=== PATIENT | female | born 1935 | race Caucasian/White ===

== ENCOUNTER 2016-12-10 10:04 | Inpatient (IN) | payer MEDICARE, OTHER ==
[~2016-12-10] VITALS: Ht 170.2 cm; Wt 76.3 kg
[~2016-12-10 10:04] MED LIST: ASPI-650 PO; COLE1TAB2 PO; ENOX40SY4 SQ; ESOM40CA PO; HYDR-3240 PO; OXYC1TAB7 PO; SULF1TAB3 PO; TOLT4CAP12 PO; VERA40TA PO; will bring a list
[2016-12-10] MEDS ORDERED: ADENOSINE 6 MG/2 ML ONE (10:13)
[2016-12-10] MEDS ORDERED: SODIUM CHLORIDE 0.9% 1,000ML IVBOLUS ONE (10:30)
[2016-12-10] MEDS ORDERED: SODIUM CHLORIDE FLUSH 10ML SYR IVF ONE (10:30)
[2016-12-10] MEDS ORDERED: ADENOSINE 6 MG/2 ML IVPush ONE (10:39)
[2016-12-10 10:40] LABS: BLOOD UREA NITROGEN 18 mg/dL (7-18)
[2016-12-10 10:44] LABS: ASPARTATE AMINO TRANSFERASE 47 U/L (15-37); IS PT STATUS REG ER OR PRE ER? YES
[2016-12-10] MEDS ORDERED: MULT-6 PO (10:50)
[2016-12-10 10:52] LABS: DIFF TOTAL CELLS COUNTED 100 CELL DIFF
[2016-12-10 10:53] LABS: VERIFY COUNTS? YES
[2016-12-10 10:54] LABS: ANISOCYTOSIS 1+
[2016-12-10] MEDS ORDERED: DOCUSATE 100 MG CAPSULE PO PRN (12:00)
[2016-12-10] MEDS ORDERED: ACETAMINOPHEN 325 MG TABLET PO PRN (12:00)
[2016-12-10] MEDS: COLESTIPOL 1 GM TABLET PO SCH (12:00)
[2016-12-10] MEDS: VERAPAMIL 80MG TABLET PO SCH ×2 (12:00→20:04)
[2016-12-10] MEDS: TOLTERODINE LA 4MG CAP.ER.24H PO SCH (12:00)
[2016-12-10] MEDS ORDERED: ONDANSETRON 2MG/ML, 2ML IVPush PRN (12:00)
[2016-12-10] MEDS: PANTOPROZOLE 40MG TABLET PO SCH (12:00)
[2016-12-10] MEDS ORDERED: BISACODYL 10 MG SUPP PR PRN (12:00)
[2016-12-10] MEDS: MULTIVITAMIN 1 TABLET PO SCH (12:00)
[2016-12-10] MEDS ORDERED: POLYETHYLENE GLYCOL 17 GM PACKET PO PRN (12:00)
[2016-12-10 14:10] VITALS: BP 142/87
[2016-12-10] MEDS: SODIUM CHLORIDE 0.9% 1,000 ML IV SCH (14:41)
[2016-12-10] MEDS: CEFTRIAXONE PMX 2GM/50ML 50 ML IV SCH (14:44)
[2016-12-10] MEDS: ENOXAPARIN 40 MG/0.4 ML SQ SCH (14:53)
[2016-12-10 19:37] VITALS: BP 120/73
[2016-12-11 01:35] VITALS: BP 106/66
[2016-12-11] MEDS: SODIUM CHLORIDE 0.9% 1,000 ML IV SCH (04:46)
[2016-12-11 06:08] LABS: BLOOD UREA NITROGEN 10 mg/dL (7-18)
[2016-12-11 07:30] VITALS: BP 97/61
[2016-12-11 07:47] LABS: DIFF TOTAL CELLS COUNTED 100 CELL DIFF
[2016-12-11 07:51] LABS: ANISOCYTOSIS 1+; SMUDGE CELLS 1+; VERIFY COUNTS? YES
[2016-12-11] MEDS ORDERED: POTASSIUM CHLORIDE 20 MEQ TAB.ER.PRT PO ONE (08:00)
[2016-12-11] MEDS: COLESTIPOL 1 GM TABLET PO SCH (09:00)
[2016-12-11] MEDS: VERAPAMIL 80MG TABLET PO SCH ×2 (09:18→20:41)
[2016-12-11] MEDS: MULTIVITAMIN 1 TABLET PO SCH (09:18)
[2016-12-11] MEDS: PANTOPROZOLE 40MG TABLET PO SCH (09:18)
[2016-12-11] MEDS: TOLTERODINE LA 4MG CAP.ER.24H PO SCH (09:18)
[2016-12-11] MEDS: ENOXAPARIN 40 MG/0.4 ML SQ SCH (11:49)
[2016-12-11] MEDS: CEFTRIAXONE PMX 2GM/50ML 50 ML IV SCH (13:54)
[2016-12-11 14:06] VITALS: BP 97/58
[2016-12-11 20:53] VITALS: BP 105/65
[2016-12-12 01:55] VITALS: BP 132/84
[2016-12-12 06:37] LABS: DIFF TOTAL CELLS COUNTED 100 CELL DIFF
[2016-12-12 06:40] LABS: VERIFY COUNTS? YES
[2016-12-12 06:42] LABS: SMUDGE CELLS 1+
[2016-12-12] MEDS ORDERED: LACT1CAP35 PO (07:40)
[2016-12-12] MEDS ORDERED: CEFD300C37 PO (07:40)
[2016-12-12 08:01] VITALS: BP 148/82
[2016-12-12] MEDS: COLESTIPOL 1 GM TABLET PO SCH (09:00)
[2016-12-12] MEDS: MULTIVITAMIN 1 TABLET PO SCH (09:18)
[2016-12-12] MEDS: PANTOPROZOLE 40MG TABLET PO SCH (09:18)
[2016-12-12] MEDS: VERAPAMIL 80MG TABLET PO SCH (09:18)
[2016-12-12] MEDS: TOLTERODINE LA 4MG CAP.ER.24H PO SCH (09:18)
[2016-12-12] MEDS: ENOXAPARIN 40 MG/0.4 ML SQ SCH (13:22)
[2016-12-12 15:47] VITALS: BP 116/77
== END 2016-12-12 18:00 | disposition home or self-care (01) | DRG 872 ==
LOC: ED 10:28 → SUATTDRO 11:15 → EDIP 11:36 → 5SO 14:11
PROC: 0T9B70Z Drainage of Bladder with Drainage Device, Via Natural or Artificial Opening (ICD-10-PCS; principal; 2016-12-10)
DX: A41.51 Sepsis due to Escherichia coli [E. coli] (principal); N39.0 Urinary tract infection, site not specified; I47.1 Supraventricular tachycardia; Z96.653 Presence of artificial knee joint, bilateral; B96.89 Other specified bacterial agents as the cause of diseases classified elsewhere; I10 Essential (primary) hypertension; K21.9 Gastro-esophageal reflux disease without esophagitis; N32.81 Overactive bladder; Z66 Do not resuscitate; Z80.1 Family history of malignant neoplasm of trachea, bronchus and lung; Z85.6 Personal history of leukemia; Z90.49 Acquired absence of other specified parts of digestive tract
CPT/HCPCS: 36415; 71010; 80047; 80048; 80053; 81001; 83605; 83735; 84443; 84484; 85025; 87040; 87077; 87086; 87186; 93005; 96361; 96374; J0153; J0696; J1650; J7030

== ENCOUNTER 2018-04-22 10:15 | Inpatient (IN) | payer MEDICARE, OTHER ==
[~2018-04-22] VITALS: Ht 170.2 cm; Wt 82.0 kg
[~2018-04-22 10:15] MED LIST changes: +CEFD300C37 PO; +LACT1CAP35 PO; +MULT-6 PO; +SULF-169 PO; -SULF1TAB3 PO
[2018-04-22] MEDS ORDERED: SODIUM CHLORIDE FLUSH 10ML SYR IVF ONE (10:30)
[2018-04-22] MEDS ORDERED: ASPIRIN 81 MG TABLET CHEW PO ONE (10:30)
[2018-04-22] MEDS ORDERED: ACET-709 PO (10:35)
[2018-04-22] MEDS ORDERED: TOLT4CAP PO (10:35)
[2018-04-22] MEDS ORDERED: ASPIRIN 81 MG TABLET CHEW ONE (11:13)
[2018-04-22 11:20] LABS: MEAN CORPUSCULAR HEMOGLOBIN 29.9 pg (27.0-34.8); MEAN CORPUSCULAR HGB CONC 33.1 g/dL (32.4-35.8); MEAN CORPUSCULAR VOLUME 90.4 fL (80-100); MEAN PLATELET VOLUME 9.2 fL (7.4-10.4); PLATELET COUNT 109 x10^3/uL (130-400); RED CELL DISTRIBUTION WIDTH 15.1 % (9.6-15.2)
[2018-04-22 11:21] LABS: ANION GAP 11 mmol/L (5-15); CALCIUM 8.9 mg/dL (8.5-10.1); CHLORIDE 101 mmol/L (98-107); CREATININE 1.32 mg/dL (0.55-1.02)
[2018-04-22 11:24] LABS: TROPONIN I < 0.015 ng/mL (0.000-0.045)
[2018-04-22 11:44] LABS: MD YES
[2018-04-22 11:52] LABS: BAND#(MANUAL) 0.55 x10^3/uL; BANDS%(MANUAL) 1 % (0-7); SEG#(MANUAL) 8.78 x10^3/uL (1.8-6.8); SEGS% (MANUAL) 16 % (42-75)
[2018-04-22 11:53] LABS: LYMPHS% (MANUAL) 81 % (22-44); MONOS% (MANUAL) 2 % (2-9)
[2018-04-22 11:54] LABS: <RBC MORPHOLOGY> NORMAL
[2018-04-22 11:55] LABS: <PLATELET ESTIMATE> DECREASED; <PLT MORPHOLOGY> NORMAL PLT MORPH
[2018-04-22] MEDS ORDERED: SODIUM CHLORIDE 0.9% 1,000 ML IV ONE (12:30)
[2018-04-22 12:55] LABS: MICROSCOPIC INDICATED
[2018-04-22] MEDS ORDERED: OMNIPAQUE 350 MG/ML, 100ML BOTTLE ONE (13:17)
[2018-04-22 13:34] LABS: CULTURE INDICATED? YES
[2018-04-22] MEDS ORDERED: CEFTRIAXONE PMX 1GM/50ML 50 ML IV ONE ×2 (14:00→17:00)
[2018-04-22] MEDS ORDERED: CEFTRIAXONE PMX 1GM/50ML 50 ML ONE (14:17)
[2018-04-22 15:00] VITALS: BP 120/74
[2018-04-22] MEDS ORDERED: ONDANSETRON ODT 4 MG PO PRN (15:00)
[2018-04-22] MEDS ORDERED: LABETALOL 5MG/ML, 20ML IVPush PRN (15:00)
[2018-04-22] MEDS ORDERED: POLYETHYLENE GLYCOL 17 GM PACKET PO PRN (15:00)
[2018-04-22 15:51] VITALS: BP 120/74
[2018-04-22] MEDS ORDERED: ACETAMINOPHEN 325 MG TABLET PO PRN (17:00)
[2018-04-22] MEDS: CEFTRIAXONE PMX 2GM/50ML 50 ML IV SCH (17:30)
[2018-04-22] MEDS: D5%-0.45% NACL 1,000 ML IV SCH (18:47)
[2018-04-22 20:35] VITALS: BP 98/62
[2018-04-22] MEDS ORDERED: FAMOTIDINE 20 MG/2 ML IVPush SCH (21:00)
[2018-04-22] MEDS: FAMOTIDINE 20 MG TABLET PO SCH ×2 (21:30→22:03)
[2018-04-23 02:26] VITALS: BP 101/63
[2018-04-23] MEDS: D5%-0.45% NACL 1,000 ML IV SCH (03:17)
[2018-04-23 04:44] LABS: ALBUMIN 2.4 g/dL (3.4-5.0); ANION GAP 7 mmol/L (5-15); CALCIUM 7.7 mg/dL (8.5-10.1); CHLORIDE 106 mmol/L (98-107)
[2018-04-23 04:56] LABS: ALANINE AMINOTRANSFERASE 22 U/L (12-78); ALKALINE PHOSPHATASE 69 U/L (45-117); BILIRUBIN,TOTAL 0.6 mg/dL (0.2-1.0); CREATININE 1.09 mg/dL (0.55-1.02); THYROID STIMULATING HORMONE 0.902 mIU/L (0.358-3.740); TOTAL PROTEIN 6.7 g/dL (6.4-8.2)
[2018-04-23 06:03] LABS: MEAN CORPUSCULAR HEMOGLOBIN 30.6 pg (27.0-34.8); MEAN CORPUSCULAR HGB CONC 33.8 g/dL (32.4-35.8); MEAN CORPUSCULAR VOLUME 90.4 fL (80-100); MEAN PLATELET VOLUME 10.1 fL (7.4-10.4); PLATELET COUNT 96 x10^3/uL (130-400); RED BLOOD COUNT 4.13 x10^6/uL (3.82-5.3); RED CELL DISTRIBUTION WIDTH 15.4 % (9.6-15.2)
[2018-04-23 07:37] LABS: MD YES
[2018-04-23 07:47] LABS: <PLATELET ESTIMATE> DECREASED; <PLT MORPHOLOGY> NORMAL PLT MORPH; <RBC MORPHOLOGY> NORMAL; BANDS%(MANUAL) 2 % (0-7); LYMPHS% (MANUAL) 80 % (22-44); SEGS% (MANUAL) 18 % (42-75); SMUDGE CELLS 1+
[2018-04-23] MEDS: COLESTIPOL 1 GM TABLET PO SCH (07:56)
[2018-04-23] MEDS: SENNA/DOCUSATE TABLET PO SCH (07:56)
[2018-04-23] MEDS: VERAPAMIL 80MG TABLET PO SCH (07:56)
[2018-04-23 08:14] VITALS: BP 96/64
[2018-04-23] MEDS ORDERED: VERAPAMIL 40MG TABLET PO SCH (09:00)
[2018-04-23] MEDS: SODIUM CHLORIDE 0.45% 1,000 ML IV SCH (12:16)
[2018-04-23 15:55] VITALS: BP 113/66
[2018-04-23] MEDS: CEFTRIAXONE PMX 2GM/50ML 50 ML IV SCH (17:51)
[2018-04-23] MEDS: FAMOTIDINE 20 MG TABLET PO SCH (20:37)
[2018-04-23 20:52] VITALS: BP 116/72
[2018-04-24] MEDS: SODIUM CHLORIDE 0.45% 1,000 ML IV SCH ×2 (02:13→14:53)
[2018-04-24 03:07] VITALS: BP 128/85
[2018-04-24 04:36] LABS: MEAN CORPUSCULAR HEMOGLOBIN 30.2 pg (27.0-34.8); MEAN CORPUSCULAR HGB CONC 33.8 g/dL (32.4-35.8); MEAN CORPUSCULAR VOLUME 89.4 fL (80-100); MEAN PLATELET VOLUME 9.3 fL (7.4-10.4); PLATELET COUNT 96 x10^3/uL (130-400); RED BLOOD COUNT 4.24 x10^6/uL (3.82-5.3); RED CELL DISTRIBUTION WIDTH 14.6 % (9.6-15.2)
[2018-04-24 04:45] LABS: CHLORIDE 105 mmol/L (98-107)
[2018-04-24 04:54] LABS: ALANINE AMINOTRANSFERASE 44 U/L (12-78); ALBUMIN 2.4 g/dL (3.4-5.0); ALKALINE PHOSPHATASE 81 U/L (45-117); ANION GAP 11 mmol/L (5-15); BILIRUBIN,TOTAL 0.6 mg/dL (0.2-1.0); CALCIUM 7.9 mg/dL (8.5-10.1); CREATININE 0.95 mg/dL (0.55-1.02); TOTAL PROTEIN 7.1 g/dL (6.4-8.2)
[2018-04-24 05:59] LABS: MD YES
[2018-04-24 06:01] LABS: LYMPH#(MANUAL) 29.63 x10^3/uL (1-3.4); LYMPHS% (MANUAL) 83 % (22-44); MONOS#(MANUAL) 0.36 x10^3/uL (0.3-2.7); MONOS% (MANUAL) 1 % (2-9); SEG#(MANUAL) 5.71 x10^3/uL (1.8-6.8); SEGS% (MANUAL) 16 % (42-75)
[2018-04-24 06:02] LABS: <PLATELET ESTIMATE> DECREASED; <PLT MORPHOLOGY> NORMAL PLT MORPH; SMUDGE CELLS 1+
[2018-04-24 06:03] LABS: POLYCHROMASIA 1+
[2018-04-24 07:00] VITALS: BP 101/69
[2018-04-24] MEDS: VERAPAMIL 80MG TABLET PO SCH (07:00)
[2018-04-24] MEDS ORDERED: POTASSIUM CHLORIDE 20 MEQ TAB.ER.PRT PO ONE ×2 (07:30→11:30)
[2018-04-24] MEDS: SENNA/DOCUSATE TABLET PO SCH (08:18)
[2018-04-24] MEDS: COLESTIPOL 1 GM TABLET PO SCH (08:18)
[2018-04-24] MEDS ORDERED: CEFD300C37 PO (12:02)
[2018-04-24 13:33] VITALS: BP 134/81
[2018-04-24] MEDS: CEFTRIAXONE PMX 2GM/50ML 50 ML IV SCH (15:27)
== END 2018-04-24 17:33 | disposition home or self-care (01) | DRG 871 ==
LOC: ED 12:10 → 3NW 14:52
PROVIDERS: ADMIT Internal Medicine; ATTEND Internal Medicine
DX: A41.9 Sepsis, unspecified organism (principal); N17.0 Acute kidney failure with tubular necrosis; N39.0 Urinary tract infection, site not specified; E44.1 Mild protein-calorie malnutrition; C95.90 Leukemia, unspecified not having achieved remission; I47.1 Supraventricular tachycardia; I48.91 Unspecified atrial fibrillation; D69.6 Thrombocytopenia, unspecified; K21.9 Gastro-esophageal reflux disease without esophagitis; I10 Essential (primary) hypertension; N32.81 Overactive bladder; R73.9 Hyperglycemia, unspecified; Z96.653 Presence of artificial knee joint, bilateral; Z90.49 Acquired absence of other specified parts of digestive tract; Z80.1 Family history of malignant neoplasm of trachea, bronchus and lung; Z87.440 Personal history of urinary (tract) infections; Z68.28 Body mass index [BMI] 28.0-28.9, adult
CPT/HCPCS: 36415; 71045; 71275; 76770; 80048; 80053; 81001; 82040; 82962; 83735; 83880; 84100; 84443; 84484; 85025; 87040; 87077; 87086; 87186; 93005; 96365; G0378; J0696; Q9967; J7030

== ENCOUNTER 2019-11-15 11:39 | Emergency (ER) | payer MEDICARE, OTHER ==
[~2019-11-15] VITALS: Ht 170.2 cm; Wt 81.5 kg
[~2019-11-15 11:39] MED LIST changes: +ACET-709 PO; +TOLT4CAP PO
--- NOTE | 2019-11-15 11:48 | NUR ---
DROVE TO [facility] [place] [facility] FOR BEING IN SVT. NO HX CARDIAC HX. PT WC;D TO ROOM T4 AND IMMEDIATELY PLACED ON [employer] PROGRAM COORDINATOR. PT NOTED TO BE 86-90 ON MONITOR. EKG COMPLETED STAT SHOWS PT IN SR. PIV INITIATED EMERGENTLY 18 G R AC. PT STATES SHE DID NOT FEEL ANY DIFFERENTLY BEFORE/DURING/AFTER [facility] VISIT. STATES SHE HAS NOT FELT DIZZY/LIGHTHEADED. STATES SHE HAS BEEN AT BASELINE. PT RESTING ON GURNEY. ALL MONITORS IN PLACE. WARM BLANKET PROVIDED. BED RAILS X 2 UP. CALL LIGHT IN REACH. WILL CLOSELY MONITOR HEART RATE AND RHYTHM.
[2019-11-15] MEDS ORDERED: TAMS-11 PO (11:51)
--- NOTE | 2019-11-15 12:09 | NUR ---
BEDSIDE REPORT GIVEN TO PAM YI. PT MOVED FROM T4 TO ROOM 09. ALL PERSONAL BELONGINGS TAKEN W/ PT TO NEW ROOM.
--- NOTE | 2019-11-15 12:11 | NUR ---
report recieved from tana wesley. pt expresses no wants or needs at this time. at bedside. pt encouraged to call for any needs. pt on cardiac, nibp,and o2 monitoring.
[2019-11-15 12:13] VITALS: BP 107/67
--- NOTE | 2019-11-15 12:14 | NUR ---
pt placed on 2 lpm o2 via nc for room air sat that intermitently drops to 88%. md made aware. pt denies any sob, cough, fever, chills, or any other respiratory symptoms.
[2019-11-15 12:15] LABS: MEAN CORPUSCULAR HEMOGLOBIN 29.8 pg (27.0-34.8); MEAN CORPUSCULAR HGB CONC 33.1 g/dL (32.4-35.8); MEAN CORPUSCULAR VOLUME 90.2 fL (80-100); MEAN PLATELET VOLUME 9.3 fL (7.4-10.4); PLATELET COUNT 131 x10^3/uL (130-400); RED BLOOD COUNT 5.24 x10^6/uL (3.82-5.3); RED CELL DISTRIBUTION WIDTH 15.1 % (9.6-15.2)
[2019-11-15 12:27] LABS: ALANINE AMINOTRANSFERASE 45 U/L (12-78); ALBUMIN 3.7 g/dL (3.4-5.0); ANION GAP 9 mmol/L (5-15); CALCIUM 9.8 mg/dL (8.5-10.1); CHLORIDE 107 mmol/L (98-107); CREATININE 1.62 mg/dL (0.55-1.02)
[2019-11-15 12:31] LABS: ALKALINE PHOSPHATASE 64 U/L (45-117); BILIRUBIN,TOTAL 1.9 mg/dL (0.2-1.0)
[2019-11-15 12:34] LABS: BASOPHILS # (AUTO) 0.07 x10^3/uL (0-0.1); BASOPHILS % (AUTO) 0 % (0-1); EOSINOPHILS # (AUTO) 0.01 x10^3/uL (0-0.4); EOSINOPHILS % (AUTO) 0 % (1-7); LYMPHOCYTES # (AUTO) 4.59 x10^3/uL (1-3.4); LYMPHOCYTES % (AUTO) 23 % (22-44); MD SCAN; MONOCYTES # (AUTO) 1.05 x10^3/uL (0.2-0.8); MONOCYTES % (AUTO) 5 % (2-9); NEUTROPHILS # (AUTO) 14.38 x10^3/uL (1.8-6.8); NEUTROPHILS % (AUTO) 72 % (42-75)
== END 2019-11-15 13:33 | disposition home or self-care (01) ==
LOC: ED 13:10
DX: I47.1 Supraventricular tachycardia (principal); R00.2 Palpitations; D72.829 Elevated white blood cell count, unspecified; R94.31 Abnormal electrocardiogram [ECG] [EKG]; I10 Essential (primary) hypertension
CPT/HCPCS: 36415; 71045; 80053; 85025; 93005; 99285

== ENCOUNTER 2020-07-09 08:18 | Emergency (ER) | payer OTHER ==
[~2020-07-09] VITALS: Ht 170.2 cm; Wt 75.5 kg
[~2020-07-09 08:18] MED LIST changes: +ASPI-1026 PO; -ASPI-650 PO; +HYDR-1067 PO; -HYDR-3240 PO; +TAMS-11 PO
--- NOTE | 2020-07-09 08:43 | NUR ---
PT TRIPPED IN HOUSE ON TUESDAY AND FELL ON RIGHT HIP. PT ABLE TO BEAR SOME WEIGHT ON THE RIGHT LEG, BUT STATES THAT IT IS STILL VERY PAINFUL. PT HIT HEAD, BUT DENIES ANY HEADACHE.
--- NOTE | 2020-07-09 08:56 | NUR ---
PT TO XRAY
[2020-07-09 09:30] VITALS: BP 103/67
--- NOTE | 2020-07-09 10:04 | NUR ---
[employer] REVIEWED WITH PT AND SON. ALL QUESTIONS ANSWERED AT THIS TIME.
== END 2020-07-09 10:08 | disposition home or self-care (01) ==
LOC: ED 09:50
DX: S32.511A Fracture of superior rim of right pubis, initial encounter for closed fracture (principal); W01.0XXA Fall on same level from slipping, tripping and stumbling without subsequent striking against object, initial encounter; Y93.89 Activity, other specified; Y92.89 Other specified places as the place of occurrence of the external cause; Y99.8 Other external cause status
CPT/HCPCS: 99282